=== PATIENT | female | born 1955 | race Caucasian/White ===

== ENCOUNTER → 2016-09-24 | Outpatient (CLI) | payer BC ==
[~2016-09-24] MED LIST: HYDROCODONE-APA1 T57 PO; PAXIL CR25 MG PO; VICODIN 5/1 TAB 5/50 PO
--- NOTE | ~2016-09-24 | CR63 ---
[facility] A Service of [facility] RADIOLOGY TEXT RESULTS PATIENT: RITA SPANGLER LOCATION: [facility] ACC #: [id number] : 57 UNIT #: [id number] AGE: [address]: LILY MERINO APRN SEX: F ORDER DR: [id number] [address] [address] [id number] O MR#: [id number] Acc #: [id number] NAME: RITA SPANGLER : 1955 SEX: F STUDY DATE/TIME: 09/24/2016 14:11 UNIT: [facility] ROOM: STUDY DESCRIPTION: CR Chest 2 View Ordering Physician: Mag Merino Aprn MEDICAL IMAGING REPORT This report is preliminary unless electronic signature is present EXAM PA and lateral chest 09/24/2016 HISTORY 60-year-old female with cough and wheezing and congestion for 3 weeks. COMPARISON None. FINDINGS PA and lateral examination of the chest upright shows a good expansion of the parenchyma with a normal distribution of the pulmonary vascularity. There is no indication of congestion, effusion, infiltrate, tumor, or nodular density. The pleural reflections and diaphragmatic contours are normal. The cardiac silhouette and mediastinal anatomy is within normal limits. IMPRESSION Normal chest. Dictated by... Sobeida Mendez M.D. THIS IS AN ELECTRONICALLY VERIFIED REPORT Sobeida Mendez M.D. at 09/27/2016 8:33 AM LLH/flynn TD: 09/24/2016 20:34 JOB #: [id number] MEDICAL IMAGING REPORT [facility] A Service of [facility] RADIOLOGY TEXT RESULTS PATIENT: RITA SPANGLER [id number] : [birth year] UNIT #: [id number] AGE: [address]: LILY MERINO APRN SEX: F ORDER DR: Page 1 of 1 COPY
== END | disposition home or self-care (01) ==
LOC: CRAD 13:52
DX: R06.2 Wheezing (principal); R05 Cough
CPT/HCPCS: 71020